=== PATIENT | female | born 1995 | race Caucasian/White ===

== ENCOUNTER 2017-09-07 15:31 | Emergency (ER) | payer MEDICAID, OTHER ==
[2017-09-07 15:32] VITALS: BMI 30.2
[2017-09-07 15:38] VITALS: BP 142/92; PULSE 120; RESP 18; TEMP 98.5; O2SAT 98
--- NOTE | 2017-09-07 16:01 | C.PDOC ---
History Of Present Illness 22 year old female who presents to the ED complaining of right sided dental pain x 3 days. She reports intermittent episodes of wisdom tooth pain in the past but has not seen a dentist. Patient has taken Tylenol for pain with minimal relief. Last dose was yesterday. Reports that she also has an appointment at her dentist Friday. Denies fever, dyspnea, neck stiffness. PMD: none Time Seen by Provider: 09/07/17 15:45 Chief Complaint (Nursing): Dental Pain Past Medical History Reviewed: Historical Data, Nursing Documentation, Vital Signs Vital Signs: Last Vital Signs Temp 98.5 F 09/07/17 15:34 Pulse 120 H 09/07/17 15:34 Resp 18 09/07/17 15:34 BP 142/92 H 09/07/17 15:34 Pulse Ox 98 09/07/17 16:09 - Medical History PMH: Kidney Stones, Chronic Kidney Disease Family History: States: No Known Family Hx - Social History Hx Tobacco Use: No Hx Alcohol Use: No Hx Substance Use: No - Immunization History Hx Tetanus Toxoid Vaccination: No Hx Influenza Vaccination: No Hx Pneumococcal Vaccination: No Review Of Systems Except As Marked, All Systems Reviewed And Found Negative. Constitutional: Negative for: Fever Respiratory: Negative for: Shortness of Breath Physical Exam - Physical Exam Additional Physical Exam Comments: Constitutional: No acute distress. Head: Normocephalic. Atraumatic. Eyes: PERRL. ENT: Moist mucous membranes. R lower wisdom tooth visible through gingiva, no surrounding erythema, discharge, or edema. Neck: Supple. Cardiovascular: Tachycardic. Radial pulse 2+ bilaterally. Chest: No tenderness. Respiratory: Clear to auscultation bilaterally. GI: Soft. Nontender. Nondistended. Back: No CVA tenderness. Musculoskeletal: No tenderness or swelling. Skin: No rash. Neurologic: Alert, no focal deficit. ED Course And Treatment O2 Sat by Pulse Oximetry: 98 (RA) Pulse Ox Interpretation: Normal Medical Decision Making Medical Decision Making: EKG --sinus tachycardic at 117, no ST/T changes, previous visits with similar HRs. Patient well appearing, has follow up with dentistry in 2 days. Will administer pain medication, instructed to return to ED for worsening pain, fever, swelling. 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 Disposition - Disposition Disposition: HOME/ ROUTINE Disposition Time: 15:59 Condition: STABLE Prescriptions: Acetaminophen [Tylenol 325mg tab] 2 tab PO Q4H #30 tab Ibuprofen [Motrin] 600 mg PO Q6 #25 tab Ondansetron ODT [Zofran ODT] 4 mg PO Q8 #12 odt oxyCODONE/Acetaminophen [Percocet 5/325 mg Tab] 1 tab PO Q6 #10 tab Instructions: Toothache (ED) Forms: [facility] (Eth[place]ian) - Clinical Impression Clinical Impression: Pain, dental
--- NOTE | 2017-09-08 22:15 | CARD ---
APPROVED REPORT EKG Measurement Heart [id number] <Conclusion> Sinus tachycardia Abnormal ECG
== END 2017-09-07 16:11 | disposition home or self-care (01) ==
LOC: C.ER 15:31
DX: K08.89 Other specified disorders of teeth and supporting structures (principal)
CPT/HCPCS: 93005; 96372; 99282; J1885

== ENCOUNTER 2018-06-03 12:36 | Emergency (ER) | payer MEDICAID, OTHER ==
[2018-06-03 12:37] VITALS: BMI 30.2
[2018-06-03 13:17] VITALS: RESP 18
[2018-06-03] MEDS ORDERED: Sodium Chloride 0.9% 1,000 ML IV ONE (13:22)
--- NOTE | 2018-06-03 13:25 | C.PDOC ---
History Of Present Illness 22-year-old female presents to the ED for evaluation of right lower quadrant abdominal pain which has been intermittent for around 2 weeks. Patient notes experiencing pain when worsens from sitting to standing and when having intercourse. She denies pain with urination, nausea, vomiting, vaginal bleeding/ discharge, changes in bowel habits. Patient states her last menstrual period was in November 2017; patient is on Depo. Time Seen by Provider: 06/03/18 13:17 Chief Complaint (Nursing): Abdominal Pain History Per: Patient History/Exam Limitations: no limitations Onset/Duration Of Symptoms: Intermittent Episodes, Other (2 weeks ) Current Symptoms Are (Timing): Still Present Location Of Pain/Discomfort: RLQ Radiation Of Pain To:: None Quality Of Discomfort: "Pain" Associated Symptoms: denies: Nausea, Vomiting, Diarrhea, Constipation, Urinary Symptoms Additional History Per: Patient Abnormal Vaginal Bleeding: No Last Menstral Period: November 2017 Past Medical History Reviewed: Historical Data, Nursing Documentation, Vital Signs Vital Signs: Last Vital Signs Temp 98.9 F 06/03/18 16:31 Pulse 91 H 06/03/18 16:31 Resp 18 06/03/18 16:31 BP 128/70 06/03/18 16:31 Pulse Ox 98 06/03/18 16:31 - Medical History PMH: Kidney Stones, Chronic Kidney Disease Surgical History: No Surg Hx Family History: States: Unknown Family Hx - Social History Hx Tobacco Use: No Hx Alcohol Use: No Hx Substance Use: No - Immunization History Hx Tetanus Toxoid Vaccination: No Hx Influenza Vaccination: No Hx Pneumococcal Vaccination: No Review Of Systems Gastrointestinal: Positive for: Abdominal Pain (right lower quadrant ). Negative for: Nausea, Vomiting, Diarrhea, Constipation Genitourinary: Negative for: Dysuria, Frequency, Hematuria, Vaginal Discharge, Vaginal Bleeding Physical Exam - Physical Exam Appears: Non-toxic, No Acute Distress Skin: Normal Color, Warm, Dry Head: Atraumatic, Normacephalic Eye(s): bilateral: Normal Inspection Oral Mucosa: Moist Neck: Supple Chest: Symmetrical, No Deformity Cardiovascular: Rhythm Regular, No Murmur Respiratory: Normal Breath Sounds, No Accessory Muscle Use, No Rales, No Rhonchi , No Wheezing Gastrointestinal/Abdominal: Soft, Tenderness (mild, to right lower quadrant ), No Mass, No Distention, No Guarding, No Rebound, No Hernia, No Ascites Extremity: Bilateral: Atraumatic, Normal Color And Temperature, Normal ROM Neurological/Psych: Oriented x3, Normal Speech ED Course And Treatment - Laboratory Results Result Diagrams: 06/03/18 13:45 06/03/18 13:45 Lab Interpretation: No Acute Changes O2 Sat by Pulse Oximetry: 97 (on RA) Pulse Ox Interpretation: Normal - CT Scan/US CT A/P Other Rad Studies (CT/US): Read By Radiologist, Radiology Report Reviewed CT/US Interpretation: PROCEDURE: CT Abdomen and Pelvis with contrast. HISTORY : RLQ abd pain. COMPARISON: CT abdomen and pelvis performed 06/18/14. TECHNIQUE: Contrast dose: 100 mL Visipaque IV. Radiation dose: Total exam DLP = 804.07 mGy-cm. This CT exam was performed using one or more of the following dose reduction techniques: Automated exposure control, adjustment of the mA and/or kV according to patient size, and/or use of iterative reconstruction technique. FINDINGS: LOWER THORAX: No visible consolidation, pleural effusion, or pneumothorax. LIVER: Unremarkable. GALLBLADDER AND BILE DUCTS: Unremarkable. PANCREAS: Unremarkable. SPLEEN: 9 mm probable splenule. Otherwise unremarkable. ADRENALS: Unremarkable. KIDNEYS AND URETERS: The kidneys enhance symmetrically. No hydronephrosis or obstructing calculus identified. VASCULATURE: No aortic aneurysm. BOWEL: Stomach is nondistended. Lack of oral contrast limits evaluation for bowel pathology. Bowel loops appear within normal limits of caliber without evidence of obstruction. Moderate constipation. APPENDIX: The appendix appears within normal limits of caliber. No secondary signs of acute appendicitis. PERITONEUM : No significant free fluid. No definite free air. LYMPH NODES: Prominent mesenteric lymph nodes; correlate clinically for possibility of mesenteric adenitis. BLADDER: Unremarkable. REPRODUCTIVE: Uterus is present. BONES: No acute osseous abnormality is detected. OTHER FINDINGS: None. IMPRESSION: The appendix appears within normal limits of caliber. No secondary signs of acute appendicitis. Prominent mesenteric lymph nodes under 1 cm in short axis; correlate clinically for possibility of mesenteric adenitis. Moderate constipation. Additional findings as above. Medical Decision Making Medical Decision Making: Impression: 22-year-old female with right lower quadrant abdominal pain for 2 weeks intermittent Plan: * bloodwork * urinalysis * CT A/P * IV fluids Progress: Labs reviewed with no acute findings, no leukocytosis UA was negative CT abdomen reviewed and shows no acute appendicitis, moderate fecal retention. See full report Patient remained afebrile alert and oriented with stable vital signs during ER evaluation. Patient is resting comfortably, abdomen remains soft,without guarding or rebound, no tenderness on re-eval. Discussed results with patient, and copy of lab abd CT report was provided. Patient feels comfortable going home and will be discharged. Patient given follow up instructions. Instructed to return to ER if symptoms worsen or new symptoms arise. Disposition Counseled Patient/Family Regarding: Diagnosis, Need For Followup, Rx Given - Disposition Referrals: [facility] [Outside] [facility] [employer] [Outside] Disposition: HOME/ ROUTINE Disposition Time: 16:12 Condition: GOOD Additional Instructions: Vaya a honeycutt mdico o la clnica en 2-5 chou sin falta, para mas evaluacin. [place] los medicamentos ana indicado. Volver a la benjamin de emergencia en cualquier momento si los sntomas persisten o empeoran Prescriptions: Docusate [Colace] 100 mg PO TID PRN #30 cap PRN Reason: Constipation Instructions: Acute Abdomen (Belly Pain), Adult (DC) Forms: Work Excuse Print Language: LIBERIAN - POA Present On Arrival: None - Clinical Impression Clinical Impression: Abdominal pain, Constipation - PA / STORAGE RECEIPT POSTER / Resident Statement MD/DO has reviewed & agrees with the documentation as recorded. - Scribe Statement The provider has reviewed the documentation as recorded by the Scribe (Fang Salguero) All medical record entries made by the Scribe were at my direction and personally dictated by me. I have reviewed the chart and agree that the record accurately reflects my personal performance of the history, physical exam, medical decision making, and the department course for this patient. I have also personally directed, reviewed, and agree with the discharge instructions and disposition.
[2018-06-03] MEDS ORDERED: Sodium Chloride 0.9% 1,000 ML ONE (13:47)
[2018-06-03 13:58] LABS: BASO # 0.1 K/uL (0.0-0.2); BASO % 0.8 % (0.0-2.0); EOS % 0.4 % (0.0-4.0); HEMOGLOBIN 13.1 g/dL (11.0-16.0); LYMPH # 2.3 K/uL (1.0-4.3); LYMPH % 25.3 % (20.0-40.0); MEAN CELL VOLUME 82.8 fL (81.0-99.0); MEAN CORPUSCULAR HEMOGLOBIN 28.8 pg (27.0-31.0); MEAN CORPUSCULAR HGB CONC 34.7 g/dL (33.0-37.0); MEAN PLATELET VOLUME 9.3 fL (7.2-11.7); MONO # 0.4 K/uL (0.0-0.8); MONO % 4.8 % (0.0-10.0); NEUT # 6.3 K/uL (1.8-7.0); NEUT % 68.7 % (50.0-75.0); RBC 4.54 Mil/uL (3.80-5.20); RED CELL DISTRIBUTION WIDTH 13.7 % (11.5-14.5); WHITE BLOOD COUNT 9.2 K/uL (4.8-10.8)
[2018-06-03 14:10] LABS: HCG,QUALITATIVE URINE NEGATIVE (NEGATIVE)
[2018-06-03 14:12] LABS: SQUAMOUS EPITHIAL 2 /hpf (0-5); URINE BILIRUBIN NEGATIVE (NEGATIVE); URINE BLOOD NEGATIVE (NEGATIVE); URINE CLARITY Clear (Clear); URINE COLOR Yellow (YELLOW); URINE GLUCOSE (UA) NORMAL (Normal); URINE LEUKOCYTE ESTERASE NEG Leu/uL (Negative); URINE PROTEIN NEGATIVE (NEGATIVE); URINE UROBILINOGEN NORMAL mg/dL (0.2-1.0)
[2018-06-03 14:21] LABS: ALB/GLOB RATIO 1.3 (1.0-2.1); ALBUMIN 4.7 g/dL (3.5-5.0); ALT/SGPT 27 U/L (9-52); AST/SGOT 23 U/L (14-36); BLOOD UREA NITROGEN 10 mg/dL (7-17); CALCIUM 9.7 mg/dl (8.6-10.4); GFR NON-AFRICAN AMERICAN > 60; LIPASE 93 U/L (23-300)
[2018-06-03] MEDS ORDERED: Iodixanol 320 MG/ML 100 ML BOTTLE IV ONE (15:11)
--- NOTE | 2018-06-03 16:10 | CT ---
Date of service: 06/03/2018 PROCEDURE: CT Abdomen and Pelvis with contrast HISTORY: RLQ abd pain COMPARISON: CT abdomen and pelvis performed 06/18/14 TECHNIQUE: Contrast dose: 100 mL Visipaque IV Radiation dose: Total exam DLP = 804.07 mGy-cm. This CT exam was performed using one or more of the following dose reduction techniques: Automated exposure control, adjustment of the mA and/or kV according to patient size, and/or use of iterative reconstruction technique. FINDINGS: LOWER THORAX: No visible consolidation, pleural effusion, or pneumothorax. LIVER: Unremarkable. GALLBLADDER AND BILE DUCTS: Unremarkable. PANCREAS: Unremarkable. SPLEEN: 9 mm probable splenule. Otherwise unremarkable. ADRENALS: Unremarkable. KIDNEYS AND URETERS: The kidneys enhance symmetrically. No hydronephrosis or obstructing calculus identified. VASCULATURE: No aortic aneurysm. BOWEL: Stomach is nondistended. Lack of oral contrast limits evaluation for bowel pathology. Bowel loops appear within normal limits of caliber without evidence of obstruction. Moderate constipation. APPENDIX: The appendix appears within normal limits of caliber. No secondary signs of acute appendicitis. PERITONEUM: No significant free fluid. No definite free air. LYMPH NODES: Prominent mesenteric lymph nodes; correlate clinically for possibility of mesenteric adenitis. BLADDER: Unremarkable. REPRODUCTIVE: Uterus is present. BONES: No acute osseous abnormality is detected. OTHER FINDINGS: None. IMPRESSION: The appendix appears within normal limits of caliber. No secondary signs of acute appendicitis. Prominent mesenteric lymph nodes under 1 cm in short axis; correlate clinically for possibility of mesenteric adenitis. Moderate constipation. Additional findings as above.
[2018-06-03 16:32] VITALS: BP 128/70; PULSE 91; TEMP 98.9
[2018-06-03 17:04] VITALS: O2SAT 97
== END 2018-06-03 16:31 | disposition home or self-care (01) ==
LOC: C.ER 12:36
DX: K59.00 Constipation, unspecified (principal); R10.31 Right lower quadrant pain
CPT/HCPCS: 74177; 80053; 81001; 83690; 84703; 85025; 87086; 96360; 99284; J7030; Q9967